=== PATIENT | female | born 1945 | race Two or more races ===

== ENCOUNTER → 2016-04-19 | Day surgery (SDC) | payer OTHER, MEDICAID ==
[2016-04-15 11:29] LABS: Basophils # (auto) 0.1 uL; Basophils % (auto) 1.9 % (0.0-2.0); Eosinophils # (auto) 0.1 uL; Eosinophils % (auto) 1.9 % (0.0-7.0); Hematocrit 42.2 % (36.0-46.0); Hemoglobin 13.9 g/dL (12.2-16.2); Lymphocytes # (auto) 2.1 uL; Lymphocytes % (auto) 30.6 % (10.0-50.0); Mean Corpuscular Hemoglobin 27.6 pg (28.0-32.0); Mean Corpuscular Volume 83.8 fL (80.0-100.0); Mean Platelet Volume 9.3 fL (7.4-10.4); Monocytes # (auto) 0.6 uL; Monocytes % (auto) 9.2 % (0.0-12.0); Neutrophils # (auto) 3.8 uL; Neutrophils % (auto) 56.4 % (37.0-80.0); Platelet Count (auto) 262 10^3/uL (140-450); Red Cell Distribution Width 14.5 % (11.6-16.0); SUSPECT VIEW TRANSMISSION; White Blood Cell 6.8 10^3/uL (4.4-10.8)
[2016-04-15 11:49] LABS: INR 1.06 (0.9-1.15); Partial Thromboplastin Time 26.8 sec (22.64-33.71); Prothrombin Time 10.9 sec (9.37-12.3)
[~2016-04-19] VITALS: Ht 149.9 cm; Wt 73.0 kg
[~2016-04-19] MED LIST: ESOM40CA39 PO; LIDOCAINE VISCOUS 2% 15ML UD ONE; SODIUM CHLORIDE LOCK 10 ML ONE; TELM80TA PO; diphenhdrAMINE HCL 50 MG/1 ML VL ONE
[2016-04-19] MEDS: MIDAZOLAM HCL 5 MG/ML-1ML VIAL ONE ×2 (11:00→11:03)
[2016-04-19] MEDS: fentaNYL CITRATE 100 MCG/2 ML VL ONE ×2 (11:00→11:03)
[2016-04-19 11:50] VITALS: BP 124/71
== END | disposition home or self-care (01) ==
LOC: GI 09:02
PROVIDERS: ATTEND Internal Medicine Gastroenterology
DX: K29.50 Unspecified chronic gastritis without bleeding (principal); K29.80 Duodenitis without bleeding; K20.9 Esophagitis, unspecified; J40 Bronchitis, not specified as acute or chronic; E66.9 Obesity, unspecified; Z90.710 Acquired absence of both cervix and uterus; F32.9 Major depressive disorder, single episode, unspecified
CPT/HCPCS: 36415; 43239; 85025; 85049; 85610; 85730; J1200; J2250; J3010; J7030

== ENCOUNTER → 2016-06-28 | Outpatient (CLI) | payer OTHER, MEDICAID ==
[~2016-06-28] MED LIST changes: -LIDOCAINE VISCOUS 2% 15ML UD ONE; -SODIUM CHLORIDE LOCK 10 ML ONE; -diphenhdrAMINE HCL 50 MG/1 ML VL ONE
== END ==
LOC: XY 11:50
DX: R22.1 Localized swelling, mass and lump, neck (principal); R55 Syncope and collapse; R09.89 Other specified symptoms and signs involving the circulatory and respiratory systems
CPT/HCPCS: 93886

== ENCOUNTER → 2016-07-13 | Outpatient (CLI) | payer OTHER, MEDICAID ==
[2016-07-13 07:46] LABS: Urine RBC None Seen /hpf (0 - 4)
[2016-07-13 07:56] LABS: Basophils # (auto) 0.1 uL; Basophils % (auto) 0.8 % (0.0-2.0); Eosinophils # (auto) 0.2 uL; Eosinophils % (auto) 2.6 % (0.0-7.0); Hematocrit 43.9 % (36.0-46.0); Hemoglobin 14.6 g/dL (12.2-16.2); Lymphocytes # (auto) 2.4 uL; Lymphocytes % (auto) 34.9 % (10.0-50.0); Mean Corpuscular Hemoglobin 27.7 pg (28.0-32.0); Mean Corpuscular Hgb Conc. 33.3 g/dL (32.0-36.0); Mean Corpuscular Volume 83.2 fL (80.0-100.0); Mean Platelet Volume 9.1 fL (7.4-10.4); Monocytes # (auto) 0.6 uL; Monocytes % (auto) 8.7 % (0.0-12.0); Neutrophils # (auto) 3.6 uL; Platelet Count (auto) 304 10^3/uL (140-450); Red Cell Distribution Width 14.6 % (11.6-16.0); White Blood Cell 6.9 10^3/uL (4.4-10.8)
[2016-07-13 07:58] LABS: Urine Bilirubin Negative (Negative); Urine Blood Negative /uL (Negative); Urine Color Yellow (Yellow); Urine Glucose Normal (Normal); Urine Ketone Negative (Negative); Urine Nitrite Negative (Negative); Urine Squamous Epithelial Cell FEW /hpf (<5); Urine Urobilinogen Normal (Negative)
[2016-07-13 08:25] LABS: BUN/Creatinine Ratio 26.9; Bilirubin, Total 0.5 mg/dL (0.2-1.0); Potassium 3.9 mmol/L (3.5-5.1); Total Protein 8.1 g/dL (6.4-8.2)
== END | disposition home or self-care (01) ==
LOC: LAB 07:20
DX: Z12.11 Encounter for screening for malignant neoplasm of colon (principal)
CPT/HCPCS: 36415; 80053; 80061; 81001; 85025

== ENCOUNTER → 2016-11-05 10:24 | Emergency (ER) | payer OTHER, MEDICAID ==
[~2016-11-05] VITALS: Ht 152.4 cm; Wt 72.6 kg
[~2016-11-05 10:24] MED LIST changes: +ACETAMINOPHEN 325 MG TAB PO ONE; +HYDROmorphone HCL 2 MG/ML VL IV ONE; +ONDANSETRON HCL 4 MG/2 ML VIAL IV ONE; +SODIUM CHLORIDE 0.9% 500 ML IVB ONE
[2016-11-05 11:02] LABS: Basophils # (auto) 0.1 uL; Basophils % (auto) 0.8 % (0.0-2.0); CONDITION Y; Eosinophils # (auto) 0.1 uL; Eosinophils % (auto) 1.2 % (0.0-7.0); Hematocrit 42.6 % (36.0-46.0); Hemoglobin 14.4 g/dL (12.2-16.2); Lymphocytes # (auto) 1.6 uL; Lymphocytes % (auto) 16.6 % (10.0-50.0); Mean Corpuscular Hgb Conc. 33.9 g/dL (32.0-36.0); Mean Corpuscular Volume 85.5 fL (80.0-100.0); Mean Platelet Volume 8.8 fL (7.4-10.4); Monocytes # (auto) 0.5 uL; Monocytes % (auto) 5.2 % (0.0-12.0); Neutrophils # (auto) 7.3 uL; Neutrophils % (auto) 76.2 % (37.0-80.0); Platelet Count (auto) 295 10^3/uL (140-450); Red Cell Distribution Width 14.9 % (11.6-16.0); White Blood Cell 9.6 10^3/uL (4.4-10.8)
[2016-11-05 11:12] LABS: Urine Bilirubin Negative (Negative); Urine Blood Negative /uL (Negative); Urine Color Yellow (Yellow); Urine Glucose Normal (Normal); Urine Ketone Negative (Negative); Urine Mucus FEW (None Seen); Urine Nitrite Negative (Negative); Urine RBC <1 /hpf (0 - 4); Urine Squamous Epithelial Cell FEW /hpf (<5); Urine Urobilinogen Normal (Negative)
[2016-11-05 11:21] LABS: BUN/Creatinine Ratio 16.7; Calcium 8.9 mg/dL (8.5-10.1); Potassium 3.7 mmol/L (3.5-5.1)
[2016-11-05 15:07] VITALS: BP 130/88
== END | disposition home or self-care (01) ==
LOC: ER 10:24
DX: R10.32 Left lower quadrant pain (principal); R11.0 Nausea; K21.9 Gastro-esophageal reflux disease without esophagitis; E78.5 Hyperlipidemia, unspecified; I10 Essential (primary) hypertension; Z90.49 Acquired absence of other specified parts of digestive tract; Z90.710 Acquired absence of both cervix and uterus; Z79.899 Other long term (current) drug therapy; Z88.1 Allergy status to other antibiotic agents
CPT/HCPCS: 36415; 74176; 80048; 81001; 85025; 94761; 96361; 96374; 96375; 99285; J1170; J2405

== ENCOUNTER 2016-12-29 06:15 | Day surgery (SDC) | payer OTHER, MEDICAID ==
[2016-12-24 11:24] LABS: Basophils # (auto) 0.1 uL; Eosinophils # (auto) 0.2 uL; Eosinophils % (auto) 1.9 % (0.0-7.0); Hematocrit 41.5 % (36.0-46.0); Hemoglobin 14.1 g/dL (12.2-16.2); Lymphocytes # (auto) 2.2 uL; Lymphocytes % (auto) 24.8 % (10.0-50.0); Mean Corpuscular Hemoglobin 28.9 pg (28.0-32.0); Mean Platelet Volume 8.2 fL (6.9-10.8); Monocytes # (auto) 0.7 uL; Monocytes % (auto) 8.3 % (0.0-12.0); Neutrophils # (auto) 5.6 uL; Nucleated Red Blood Cells % 0.1 %; Platelet Count (auto) 291 10^3/uL (140-450); Red Cell Distribution Width 14.5 % (11.8-14.3); White Blood Cell 8.8 10^3/uL (4.4-10.8)
[2016-12-24 11:42] LABS: INR 0.97 (0.9-1.15); Prothrombin Time 10.6 sec (9.37-12.3)
[2016-12-24 11:52] LABS: BUN/Creatinine Ratio 34.7; Bilirubin, Total 0.4 mg/dL (0.2-1.0); Calcium 8.9 mg/dL (8.5-10.1); Potassium 3.8 mmol/L (3.5-5.1); Total Protein 7.9 g/dL (6.4-8.2)
[2016-12-24 12:18] LABS: Urine Bilirubin Negative (Negative); Urine Blood Negative /uL (Negative); Urine Glucose Normal (Normal); Urine Ketone Negative (Negative); Urine Mucus FEW (None Seen); Urine Nitrite Negative (Negative); Urine RBC <1 /hpf (0 - 4); Urine Squamous Epithelial Cell FEW /hpf (<5); Urine Urobilinogen Normal (Negative); Urine pH 5.5 (5.0-8.0)
[2016-12-24 12:19] LABS: Urine Color Straw (Yellow)
[~2016-12-29] VITALS: Ht 152.4 cm; Wt 73.0 kg
[~2016-12-29 06:15] MED LIST changes: -ACETAMINOPHEN 325 MG TAB PO ONE; +AMLO10TA2 PO; +ATOR10TA52 PO; -HYDROmorphone HCL 2 MG/ML VL IV ONE; -ONDANSETRON HCL 4 MG/2 ML VIAL IV ONE; -SODIUM CHLORIDE 0.9% 500 ML IVB ONE
[2016-12-29] MEDS ORDERED: ceFAZolin 1GM/50ML D5W 50 ML IV ONE (07:05)
[2016-12-29] MEDS ORDERED: METOCLOPRAMIDE HCL 5MG/ml INJ 2ml VIAL IV ONE (07:30)
[2016-12-29] MEDS ORDERED: KETOROLAC TROMETH 30 MG/ML 1ML VIAL IV ONE (07:30)
[2016-12-29] MEDS ORDERED: NEOMYCIN-BACITRACIN-POLYM 15GM TOP OINT TOP ONE (07:31)
[2016-12-29] MEDS ORDERED: BUPIVACAINE 0.75% INJ 10ML MPV SDV IJ ONE ×2 (07:31→09:10)
[2016-12-29] MEDS ORDERED: ceFAZolin 1GM VL ONE (07:41)
[2016-12-29] MEDS ORDERED: ONDANSETRON HCL 4 MG/2 ML VIAL ONE (08:48)
[2016-12-29] MEDS ORDERED: fentaNYL CITRATE 100 MCG/2 ML VL ONE (08:48)
[2016-12-29] MEDS ORDERED: MIDAZOLAM HCL 1MG/1ML-2 ML VIAL ONE (08:48)
[2016-12-29] MEDS ORDERED: SODIUM CHLORIDE LOCK 20 ML ONE (08:48)
[2016-12-29] MEDS ORDERED: PROPOFOL 10 MG/ML 20 ML IV ONE ×2 (08:48→10:18)
[2016-12-29] MEDS: HYDROmorphone HCL 2 MG/ML VL IV PRN ×2 (10:46→10:56)
[2016-12-29 11:20] VITALS: BP 155/74
== END 2016-12-29 11:20 | disposition home or self-care (01) ==
LOC: SUR 06:15
PROVIDERS: ATTEND Podiatrist Foot & Ankle Surgery
DX: M21.611 Bunion of right foot (principal); M20.11 Hallux valgus (acquired), right foot; M89.9 Disorder of bone, unspecified; M62.471 Contracture of muscle, right ankle and foot; J40 Bronchitis, not specified as acute or chronic; E66.9 Obesity, unspecified; Z90.710 Acquired absence of both cervix and uterus; F41.9 Anxiety disorder, unspecified
CPT/HCPCS: 28104; 28296; 36415; 73620; 76000; 80053; 81001; 85025; 85610; 85730; 88304; 88311; C1713; J0690; J1170; J1885; J2250; J2405; J2704; J3010; J3490; L3260

== ENCOUNTER 2017-02-23 16:20 | Emergency (ER) | payer OTHER, MEDICAID ==
[~2017-02-23] VITALS: Ht 152.4 cm; Wt 72.6 kg
[2017-02-23] MEDS ORDERED: cloNIDine HCL 0.1 MG TAB ONE (16:23)
[2017-02-23 16:29] VITALS: BP 255/125
[2017-02-23] MEDS ORDERED: cloNIDine HCL 0.1 MG TAB PO ONE (16:30)
[2017-02-23 17:19] LABS: Basophils # (auto) 0.1 uL; Basophils % (auto) 1.4 % (0.0-2.0); Eosinophils # (auto) 0.1 uL; Eosinophils % (auto) 1.2 % (0.0-7.0); Hematocrit 44.1 % (36.0-46.0); Hemoglobin 14.8 g/dL (12.2-16.2); Lymphocytes # (auto) 2.2 uL; Lymphocytes % (auto) 27.1 % (10.0-50.0); Mean Corpuscular Hemoglobin 28.5 pg (28.0-32.0); Mean Corpuscular Hgb Conc. 33.5 g/dL (32.0-36.0); Mean Corpuscular Volume 84.9 fL (80.0-100.0); Mean Platelet Volume 8.5 fL (6.9-10.8); Monocytes # (auto) 0.7 uL; Monocytes % (auto) 9.1 % (0.0-12.0); Neutrophils % (auto) 61.2 % (37.0-80.0); Nucleated Red Blood Cells % 0.2 %; Platelet Count (auto) 311 10^3/uL (140-450); Red Cell Distribution Width 14.6 % (11.8-14.3); White Blood Cell 8.1 10^3/uL (4.4-10.8)
[2017-02-23 17:42] LABS: Albumin 4.2 g/dL (3.4-5.0); Alkaline Phosphatase 101 U/L (45-117); Anion Gap 12 (5-15); Aspartate Aminotransferase 36 U/L (15-37); Bilirubin, Total 0.4 mg/dL (0.2-1.0); Blood Urea Nitrogen 13 mg/dL (7-18); Carbon Dioxide 22 mmol/L (21-32); Chloride 107 mmol/L (98-107); GFR African American 157 mL/min; GFR Non-African American 130 mL/min; Glucose 102 mg/dL (74-106); Magnesium 2.1 mg/dL (1.6-2.6); Potassium 3.7 mmol/L (3.5-5.1); Sodium 141 mmol/L (136-145); Total Protein 8.3 g/dL (6.4-8.2)
== END 2017-02-23 22:02 | disposition left against medical advice (07) ==
LOC: ER 16:21
DX: R07.89 Other chest pain (principal); R51 Headache; Z53.21 Procedure and treatment not carried out due to patient leaving prior to being seen by health care provider
CPT/HCPCS: 36415; 70450; 71020; 80053; 83735; 84484; 85025; 93005

== ENCOUNTER → 2017-03-07 | Outpatient (CLI) | payer OTHER, MEDICAID | END | disposition home or self-care (01) | LOC: LAB 10:17 | PROVIDERS: ATTEND Family Medicine | DX: R53.83 Other fatigue (principal) | CPT/HCPCS: 36415; 84439; 84443; 84481 ==

== ENCOUNTER → 2017-04-13 | Outpatient (CLI) | payer OTHER, MEDICAID ==
[2017-04-13 11:29] LABS: Basophils # (auto) 0.2 uL; Basophils % (auto) 3.1 % (0.0-2.0); Eosinophils # (auto) 0.2 uL; Eosinophils % (auto) 3.4 % (0.0-7.0); Hematocrit 43.1 % (36.0-46.0); Hemoglobin 14.3 g/dL (12.2-16.2); Lymphocytes # (auto) 2.4 uL; Lymphocytes % (auto) 40.9 % (10.0-50.0); Mean Corpuscular Hemoglobin 27.8 pg (28.0-32.0); Mean Corpuscular Hgb Conc. 33.2 g/dL (32.0-36.0); Mean Corpuscular Volume 83.6 fL (80.0-100.0); Monocytes # (auto) 0.6 uL; Monocytes % (auto) 9.7 % (0.0-12.0); Neutrophils # (auto) 2.5 uL; Neutrophils % (auto) 42.9 % (37.0-80.0); Nucleated Red Blood Cells % 0.1 %; Platelet Count (auto) 303 10^3/uL (140-450); Red Blood Cells 5.15 10^6/uL (4.0-5.20); Red Cell Distribution Width 15.1 % (11.8-14.3); White Blood Cell 5.9 10^3/uL (4.4-10.8)
[2017-04-13 11:46] LABS: Albumin 3.9 g/dL (3.4-5.0); Bilirubin, Total 0.4 mg/dL (0.2-1.0); Total Protein 7.8 g/dL (6.4-8.2)
[2017-04-13 13:48] LABS: Urine Bacteria FEW /hpf (None Seen); Urine Blood Negative /uL (Negative); Urine Mucus FEW (None Seen); Urine Specific Gravity 1.013 (1.001-1.035); Urine WBC 9 /hpf (0 - 5)
== END | disposition home or self-care (01) ==
LOC: LAB 10:43
PROVIDERS: ATTEND Family Medicine
DX: E78.5 Hyperlipidemia, unspecified (principal)
CPT/HCPCS: 36415; 80053; 80061; 81001; 85025

== ENCOUNTER 2019-10-07 13:07 | Inpatient (IN) | payer OTHER, MEDICAID ==
[~2019-10-07] VITALS: Ht 160 cm; Wt 71.2 kg
[~2019-10-07 13:07] MED LIST changes: +AMLO10TA13 PO; -AMLO10TA2 PO
[2019-10-07] MEDS ORDERED: SODIUM CHLORIDE 0.9% 1,000 ML IV ONE ×2 (16:49→22:15)
[2019-10-07] MEDS ORDERED: ONDANSETRON HCL 4 MG/2 ML VIAL IV ONE (17:00)
[2019-10-07] MEDS ORDERED: PANTOPRAZOLE 40 MG/10 ML VIAL INJ IV ONE (17:00)
[2019-10-07 18:58] LABS: Basophils # (auto) 0 10 ^3/uL (0-0.2); Basophils % (auto) 0.2 % (0.0-2.0); Eosinophils # (auto) 0 10 ^3/uL (0-0.8); Hematocrit 43.3 % (36.0-46.0); Hemoglobin 14.5 g/dL (12.2-16.2); Lymphocytes # (auto) 1.5 10 ^3/uL (0.4-5.4); Lymphocytes % (auto) 15.5 % (10.0-50.0); Mean Corpuscular Hemoglobin 27.9 pg (28.0-32.0); Mean Corpuscular Hgb Conc. 33.4 g/dL (32.0-36.0); Mean Corpuscular Volume 83.5 fL (80.0-100.0); Monocytes % (auto) 9.9 % (0.0-12.0); Neutrophils # (auto) 7.4 10 ^3/uL (1.6-8.6); Neutrophils % (auto) 74.4 % (37.0-80.0); Nucleated Red Blood Cells % 0.2 %; Platelet Count (auto) 252 10^3/uL (140-450); Red Blood Cells 5.19 10^6/uL (4.0-5.20); Red Cell Distribution Width 14.7 % (11.8-14.3)
[2019-10-07 19:15] LABS: Albumin 3.3 g/dL (3.4-5.0); Calcium 8.7 mg/dL (8.5-10.1); Magnesium 2.4 mg/dL (1.6-2.6); Potassium 3.3 mmol/L (3.5-5.1)
[2019-10-07 19:18] LABS: BUN/Creatinine Ratio 31.3; Bilirubin, Total 0.6 mg/dL (0.2-1.0); Total Protein 7.9 g/dL (6.4-8.2)
[2019-10-07] MEDS ORDERED: IOHEXOL 300 MG/ML 100ML BOTTLE IJ ONE (20:49)
[2019-10-07] MEDS ORDERED: AZITHROMYCIN 500MG/ 250ML 250 ML IV ONE (22:00)
[2019-10-07] MEDS ORDERED: cefTRIAXone 1GM/50ML D5W 50 ML IV ONE (22:00)
[2019-10-07] MEDS ORDERED: ACETAMINOPHEN 325 MG TAB PO ONE (23:45)
[2019-10-08] MEDS ORDERED: SODIUM CHLORIDE 0.9% 1,000 ML IV SCH (04:43)
[2019-10-08] MEDS ORDERED: MORPHINE SULF INJ 2 MG/ML SYRINGE 1ML IV PRN (04:45)
[2019-10-08] MEDS ORDERED: DOCUSATE SOD 100 MG CAP PO PRN (04:45)
[2019-10-08] MEDS ORDERED: HYDROcodone-ACET 5/325MG TAB PO PRN (04:45)
[2019-10-08] MEDS ORDERED: ALUM & MAG HYDROX-SIMETH LIQ(MAALOX) 30 ML PO PRN (04:45)
[2019-10-08] MEDS ORDERED: ACETAMINOPHEN 500 MG TAB PO PRN (04:45)
[2019-10-08] MEDS ORDERED: ALBUTEROL SULF HFA 90MCG INH 200DOSE IN SCH (06:00)
[2019-10-08] MEDS: ACETAMINOPHEN 325 MG TAB PO PRN ×2 (07:49→11:10)
[2019-10-08] MEDS ORDERED: PANTOPRAZOLE 40 MG/10 ML VIAL INJ IV SCH (10:00)
[2019-10-08] MEDS: ASCORBIC ACID 1,000 MG TAB PO SCH (10:35)
[2019-10-08] MEDS: ENOXAPARIN SOD 40 MG/0.4 ML SYRINGE SC SCH (10:35)
[2019-10-08] MEDS: CHOLECALCIFEROL (VITD3) 1,000IU=25mCg TAB PO SCH (10:35)
[2019-10-08] MEDS: DOXYCYCLINE 100 MG TAB/CAP PO SCH ×2 (10:35→22:41)
[2019-10-08] MEDS: ZINC SULFATE 220mg CAP or TAB PO SCH (10:35)
[2019-10-08 11:24] LABS: Basophils # (auto) 0 10 ^3/uL (0-0.2); Basophils % (auto) 0.3 % (0.0-2.0); Eosinophils # (auto) 0 10 ^3/uL (0-0.8); Eosinophils % (auto) 0.1 % (0.0-7.0); Hematocrit 38.8 % (36.0-46.0); Hemoglobin 12.9 g/dL (12.2-16.2); Lymphocytes # (auto) 1.3 10 ^3/uL (0.4-5.4); Lymphocytes % (auto) 13.8 % (10.0-50.0); Mean Corpuscular Hgb Conc. 33.3 g/dL (32.0-36.0); Mean Corpuscular Volume 83.9 fL (80.0-100.0); Monocytes # (auto) 0.6 10 ^3/uL (0-1.3); Monocytes % (auto) 6.2 % (0.0-12.0); Neutrophils # (auto) 7.5 10 ^3/uL (1.6-8.6); Neutrophils % (auto) 79.6 % (37.0-80.0); Platelet Count (auto) 241 10^3/uL (140-450); Red Blood Cells 4.63 10^6/uL (4.0-5.20); Red Cell Distribution Width 14.7 % (11.8-14.3); White Blood Cell 9.4 10^3/uL (4.4-10.8)
[2019-10-08] MEDS ORDERED: POTASSIUM CHL 20 Meq TABLET PO ONE ×2 (11:30→12:30)
[2019-10-08 11:37] LABS: BUN/Creatinine Ratio 30.4; Calcium 8.5 mg/dL (8.5-10.1); Magnesium 2.2 mg/dL (1.6-2.6)
[2019-10-08 20:32] VITALS: BP 101/53
--- NOTE | 2019-10-08 20:32 | NUR ---
MS admit from ER to Covid-19 Unit NATHANGONZALO MARIO admitted to tele/MS. Patient oriented to ALTHEA VILLELA, primary RN, unit, room, bed, and unit policies regarding patient care and visiting hours. Patient is alert and oriented x4. Patient denies pain or shortness of breath at this time. Patient is on 2L NC, SPO2: 94% at this time. No sign/symptoms of distress noted or verbalized at this time. Instructed on plan of care and encouraged patient to call for assistance as needed, patient verbalized understanding. Bed is locked in lowest position, side rails x 2 are up, call light is within reach, and bed alarm is on.
[2019-10-08 22:00] VITALS: BP 101/53
[2019-10-08] MEDS: amLODIPine BESYLATE 5 MG TAB PO SCH (22:00)
[2019-10-08] MEDS: PANTOPRAZOLE 40 MG TAB PO SCH (22:40)
[2019-10-08] MEDS ORDERED: OMEP-434 PO (23:55)
[2019-10-08] MEDS ORDERED: LOSA-39 PO (23:55)
--- NOTE | 2019-10-09 00:40 | NUR ---
Urine Sample and MRSA Swab Collected and Sent to Lab Urine sample and MRSA swab collected and sent to lab via bullet.
[2019-10-09 01:06] LABS: Urine Amorphous Crystal FEW /hpf (None Seen); Urine Bacteria FEW /hpf (None Seen); Urine Blood Negative /uL (Negative); Urine Specific Gravity 1.003 (1.001-1.035); Urine WBC 4 /hpf (0 - 5)
[2019-10-09 05:00] VITALS: BP 159/82
[2019-10-09 06:54] LABS: Basophils # (auto) 0 10 ^3/uL (0-0.2); Basophils % (auto) 0.3 % (0.0-2.0); Eosinophils # (auto) 0 10 ^3/uL (0-0.8); Eosinophils % (auto) 0.4 % (0.0-7.0); Hematocrit 38.7 % (36.0-46.0); Lymphocytes % (auto) 12.8 % (10.0-50.0); Mean Corpuscular Hemoglobin 28.2 pg (28.0-32.0); Mean Corpuscular Hgb Conc. 33.7 g/dL (32.0-36.0); Mean Corpuscular Volume 83.6 fL (80.0-100.0); Monocytes # (auto) 0.7 10 ^3/uL (0-1.3); Monocytes % (auto) 8.8 % (0.0-12.0); Neutrophils # (auto) 6.2 10 ^3/uL (1.6-8.6); Neutrophils % (auto) 77.7 % (37.0-80.0); Nucleated Red Blood Cells % 0.2 %; Platelet Count (auto) 247 10^3/uL (140-450); Red Blood Cells 4.62 10^6/uL (4.0-5.20); Red Cell Distribution Width 14.8 % (11.8-14.3)
[2019-10-09 07:15] LABS: Calcium 8.6 mg/dL (8.5-10.1); Potassium 3.9 mmol/L (3.5-5.1)
[2019-10-09 07:18] LABS: Albumin 2.4 g/dL (3.4-5.0); BUN/Creatinine Ratio 27.8
[2019-10-09 07:21] LABS: Bilirubin, Total 0.4 mg/dL (0.2-1.0); Total Protein 6.5 g/dL (6.4-8.2)
--- NOTE | 2019-10-09 07:35 | NUR ---
Opening Shift Note Assumed care of patient, awake and alert. No S/S of distress/SOB or pain noted at this time, currently on 2L via NC. Instructed on POC and to call for assist PRN, call light within reach, bed alarm on, pt states she uses [facility] at home, instructed to use call light if she needs to ambulate to bathroom, pt verbalized understanding, will continue to monitor for changes Q1hr and PRN.
[2019-10-09 08:00] VITALS: BP 154/85
[2019-10-09] MEDS: ENOXAPARIN SOD 40 MG/0.4 ML SYRINGE SC SCH ×2 (08:53→22:09)
[2019-10-09] MEDS: PANTOPRAZOLE 40 MG TAB PO SCH ×2 (08:55→22:08)
[2019-10-09] MEDS: ZINC SULFATE 220mg CAP or TAB PO SCH (08:55)
[2019-10-09] MEDS: ASCORBIC ACID 1,000 MG TAB PO SCH (08:56)
[2019-10-09] MEDS: CHOLECALCIFEROL (VITD3) 1,000IU=25mCg TAB PO SCH (08:57)
[2019-10-09] MEDS: DOXYCYCLINE 100 MG TAB/CAP PO SCH ×2 (08:57→22:08)
[2019-10-09 09:00] VITALS: BP 154/85
[2019-10-09] MEDS: ACETAMINOPHEN 325 MG TAB PO PRN ×2 (11:03→18:29)
--- NOTE | 2019-10-09 11:40 | NUR ---
AMBULATION PT ASSISTED TO BATHROOM, GAIT UNSTEADY, ASSISTED BACK TO BED, BED ALARM ON AND CALL LIGHT WITHIN REACH, CONT CARE
[2019-10-09 13:00] VITALS: BP 123/72
[2019-10-09] MEDS ORDERED: FUROSEMIDE 40 MG/4 ML VIAL IV ONE (13:30)
[2019-10-09] MEDS ORDERED: POTASSIUM CHL 20 Meq TABLET PO ONE (13:30)
[2019-10-09] MEDS ORDERED: cefTRIAXone 1GM/50ML D5W 50 ML IV ONE (13:45)
--- NOTE | 2019-10-09 15:30 | NUR ---
INCENTIVE SPIROMETER PT INSTRUCTED HOW TO USE AND INSTRUCTED TO USE Q1HR WA, PT ABLE TO RETURN DEMONSTRATION AND RAISE MARKER TO 500, C/O SOB AND NON PRODUCTIVE COUGH, CONT TO BE ON O2, INSTRUCTED PT TAKE A BREAK AND TRY AGAIN LATER, PT VERBALIZED UNDERSTANDING,, CONT CARE
[2019-10-09 17:00] VITALS: BP 110/72
--- NOTE | 2019-10-09 19:02 | NUR ---
PAIN PT C/O "LUNG PAIN AND HEAD ACHE", OFFERED TO MEDICATE WITH NORCO, PT REFUSED AND SATES "OH I GET REALLY SICK WITH NORCO", OFFERED PT MORPHINE AND PT REFUSED AND STATES " OH NO I DON'T LIKE TO TAKE MORPHINE", PT AGREED TO TAKE TYLENOL 650MG PO, CONT CARE
--- NOTE | 2019-10-09 19:40 | NUR ---
Opening Shift Note Assumed care of patient, awake and alert x4. Patient is on 2L/min NC, SPO2: 94% at this time. Patient denies pain or shortness of breath at this time. No sign/symptoms of distress noted or verbalized at this time. Instructed on plan of care and encouraged to call for assistance as needed, patient verbalized understanding. Bed is locked in lowest position, side rails x 2 are up, call light is within reach, and bed alarm is on.
[2019-10-09] MEDS: amLODIPine BESYLATE 5 MG TAB PO SCH (22:09)
[2019-10-09 22:18] VITALS: BP 120/81
[2019-10-10 05:00] VITALS: BP 117/68
--- NOTE | 2019-10-10 07:30 | NUR ---
Opening Shift Note Assumed care of patient, awake and alert. No S/S of distress/SOB or pain. Instructed on POC and to call for assist PRN, will continue to monitor for changes Q1hr and PRN. Fall precautions in place per safety protocol.
[2019-10-10] MEDS: ACETAMINOPHEN 325 MG TAB PO PRN ×2 (09:01→19:40)
[2019-10-10 09:14] VITALS: BP 116/59
[2019-10-10] MEDS: cefTRIAXone 1GM/50ML D5W 50 ML IV SCH (09:20)
[2019-10-10] MEDS: FUROSEMIDE 40 MG/4 ML VIAL IV SCH (09:21)
[2019-10-10] MEDS: ZINC SULFATE 220mg CAP or TAB PO SCH (09:21)
[2019-10-10] MEDS: ASCORBIC ACID 1,000 MG TAB PO SCH (09:22)
[2019-10-10] MEDS: PANTOPRAZOLE 40 MG TAB PO SCH ×2 (09:22→22:32)
[2019-10-10] MEDS: CHOLECALCIFEROL (VITD3) 1,000IU=25mCg TAB PO SCH (09:22)
[2019-10-10] MEDS: POTASSIUM CHL 20 Meq TABLET PO SCH (09:22)
[2019-10-10] MEDS: DOXYCYCLINE 100 MG TAB/CAP PO SCH ×2 (09:22→22:32)
[2019-10-10] MEDS: ENOXAPARIN SOD 40 MG/0.4 ML SYRINGE SC SCH ×2 (09:23→22:33)
[2019-10-10] MEDS: ONDANSETRON HCL 4 MG/2 ML VIAL IV PRN (09:46)
[2019-10-10] MEDS: Ensure HIGH Protein Chocolate 8oz Bottle PO SCH ×2 (12:00→18:00)
[2019-10-10 12:30] VITALS: BP 102/64
[2019-10-10 17:13] VITALS: BP 97/60
--- NOTE | 2019-10-10 19:30 | NUR ---
OPENING SHIFT NOTE Assumed care of patient who is A&O x4. Predominately Stateless speaking. Currently on 2L NC with noted dry cough. Denies SOB. Reports 3/10 headache at this time. Pain management options discussed. No N/V/D at this time, according to patient. Patient is weak, but capable of transferring to [facility] independently. No IV access present. Will attempt to obtain venous access. Bed is in low locked position with side rails up x2. call light is within reach and patient encouraged to call for assistance when needed. Will continue to monitor for changes PRN.
[2019-10-10 20:00] VITALS: BP 122/72
[2019-10-10 22:00] VITALS: BP 122/72
[2019-10-10] MEDS: amLODIPine BESYLATE 5 MG TAB PO SCH (22:32)
--- NOTE | 2019-10-10 22:34 | NUR ---
IV ACCESS ATTEMPT Patient currently has no IV access. Patient refused to allow this RN to attempt obtaining IV access at this time. States' "not now. Wait until tomorrow." No IV medications are due over night. Will attempt to obtain venous access again in the morning.
[2019-10-11 05:00] VITALS: BP 90/46
--- NOTE | 2019-10-11 06:45 | NUR ---
IV insertion IV access obtained, via clean sterile technique by inserting 22 gauge catheter at left forearm after 2 attempts. IV secured properly. No trauma to site. Patient tolerated well.
[2019-10-11] MEDS: Ensure HIGH Protein Chocolate 8oz Bottle PO SCH ×2 (08:00→12:00)
[2019-10-11 08:29] VITALS: BP 101/60
[2019-10-11] MEDS: cefTRIAXone 1GM/50ML D5W 50 ML IV SCH (09:40)
[2019-10-11] MEDS: FUROSEMIDE 40 MG/4 ML VIAL IV SCH (09:41)
[2019-10-11] MEDS: POTASSIUM CHL 20 Meq TABLET PO SCH (09:41)
[2019-10-11] MEDS: PANTOPRAZOLE 40 MG TAB PO SCH (09:41)
[2019-10-11] MEDS: DOXYCYCLINE 100 MG TAB/CAP PO SCH (09:41)
[2019-10-11] MEDS: ZINC SULFATE 220mg CAP or TAB PO SCH (09:41)
[2019-10-11] MEDS: CHOLECALCIFEROL (VITD3) 1,000IU=25mCg TAB PO SCH (09:42)
[2019-10-11] MEDS: ENOXAPARIN SOD 40 MG/0.4 ML SYRINGE SC SCH (09:42)
[2019-10-11] MEDS: ONDANSETRON HCL 4 MG/2 ML VIAL IV PRN (09:42)
[2019-10-11] MEDS: ASCORBIC ACID 1,000 MG TAB PO SCH (09:42)
[2019-10-11] MEDS: ACETAMINOPHEN 325 MG TAB PO PRN ×2 (09:48→16:09)
[2019-10-11] MEDS ORDERED: POTA-220 PO (12:13)
[2019-10-11] MEDS ORDERED: FURO20TA3 PO (12:13)
[2019-10-11] MEDS ORDERED: ASPI81CH43 PO (12:13)
[2019-10-11] MEDS ORDERED: AZIT500T66 PO (12:13)
[2019-10-11] MEDS ORDERED: CHOL1000 PO (12:13)
[2019-10-11] MEDS ORDERED: ASCO10003 PO (12:13)
[2019-10-11] MEDS ORDERED: DEXT1SYP9 PO (12:15)
[2019-10-11] MEDS ORDERED: AMOX500T86 PO (12:15)
[2019-10-11 12:23] VITALS: BP 100/62
--- NOTE | 2019-10-11 13:32 | NUR ---
SPOKE TO CHAIR AND COUCH MAKER. PER [facility] PATIENT CAN NOT GO BY [facility], [employer] WILL NOT ACCEPT COVID POSITIVE PATIENTS.
--- NOTE | 2019-10-11 13:32 | NUR ---
SPOKE TO BILLY UNDERCOAT SPRAYER, PER BILLY ONLY ONE COMPANY WILL ACCEPT PATIENT AND PATIENT WILL HAVE TO PAY OUT OF POCKET. PATIENT STATES SHE WILL TRY TO CALL SOMEONE.
--- NOTE | 2019-10-11 16:13 | NUR ---
Assessment Patient is a 74- year-old female who is alert and oriented. Prior to admission patient lived home with her son and function independently. Per patient she can care for her own ADLs. Per patient has a walker for home use. Per patient she will return to her prior living arrangements post discharge and [facility] transportation needs to be arranged upon d/c day. Patient PCP Dr. Sylvester. Advise patient there is a social service consult for home oxygen. Informed patient clinical information will be faxed to [facility]. Advised patient to follow up with her primary doctor. Informed patient she has the right to participate in all discharge planning. Patient verbalized understanding and agreed to discharge plan. Faxed clinical information to [facility] requesting to deliver portable oxygen to [facility]. Deangelo Koch with [facility] oxygen portable will be delivering to [facility] by 15:45 and concentrate oxygen to home. Faxed transportation form request to [facility] requesting for a 17:00 via gurney and oxygen. [facility] transport is aware that patient is COVID (+). Deangelo Taylor with [facility] transportation has been arranged with [facility] Ph:) unit via gurney and oxygen with a 17:15 moss picker time. EFE Fitch was Informed. Addendum: 10/11/19 at 1614 by SHA SALAZAR Amended: Links added.
[2019-10-11 16:52] VITALS: BP 106/72
[2019-10-11] MEDS ORDERED: METH4PAK PO (17:07)
--- NOTE | 2019-10-11 17:59 | NUR ---
Discharge instructions given as ordered. Encourage to follow up with PMD as instructed. INSTRUCTED TO FOLLOW UP WITH PCP FOR FOLLOW UP APPOINTMENT AND CT SCAN FOLLOW UP. INSTRUCTED ON OXYGEN USE AND DISCHARGED WITH OXYGEN DELIVERED. All questions and concerns addressed. Patient verbalized understanding. IV removed with catheter intact, pressure dressing applied. Telemetry unit returned to ICU. Patient taken to vehicle via wheelchair with all personal belongings, accompanied by staff, TRANSPORTED BY [facility] [employer]. No distress noted at time of departure.
== END 2019-10-11 18:00 | disposition home health service (06) | DRG 177 ==
LOC: ER 13:07 → EDBD 13:07 → EDUNIT# 13:07 → OVERFLOW 13:08 → EAST 10-08 20:32
PROVIDERS: ADMIT Hospitalist; ATTEND Internal Medicine
DX: U07.1 COVID-19 (principal); J12.89 Other viral pneumonia; J96.00 Acute respiratory failure, unspecified whether with hypoxia or hypercapnia; A08.39 Other viral enteritis; K29.00 Acute gastritis without bleeding; I10 Essential (primary) hypertension; E78.5 Hyperlipidemia, unspecified; F32.9 Major depressive disorder, single episode, unspecified; K42.9 Umbilical hernia without obstruction or gangrene; K21.9 Gastro-esophageal reflux disease without esophagitis; K76.9 Liver disease, unspecified; K76.0 Fatty (change of) liver, not elsewhere classified; M47.9 Spondylosis, unspecified; M43.16 Spondylolisthesis, lumbar region; Z88.8 Allergy status to other drugs, medicaments and biological substances; Z82.49 Family history of ischemic heart disease and other diseases of the circulatory system; Z82.5 Family history of asthma and other chronic lower respiratory diseases; Z83.3 Family history of diabetes mellitus; Z90.710 Acquired absence of both cervix and uterus
CPT/HCPCS: 36415; 71045; 74177; 80048; 80053; 81001; 82105; 82728; 83735; 85025; 87040; 87070; 87081; 87804; 87880; 96361; 96365; 96368; 96372; 96375; C9113; G0378; J0696; J2405

== ENCOUNTER 2019-11-23 10:41 | Emergency (ER) | payer OTHER, MEDICAID ==
[~2019-11-23] VITALS: Ht 149.9 cm; Wt 68.0 kg
[~2019-11-23 10:41] MED LIST changes: -AMLO10TA13 PO; +AMOX500T86 PO; +ASCO10003 PO; +ASPI81CH43 PO; -ATOR10TA52 PO; +AZIT500T66 PO; +CHOL1000 PO; +DEXT1SYP9 PO; -ESOM40CA39 PO; +FURO20TA3 PO; +METH4PAK PO; +OMEP-434 PO; +POTA-220 PO; -TELM80TA PO
[2019-11-23 11:16] VITALS: BP 163/87
[2019-11-23] MEDS ORDERED: ACETAMINOPHEN 325 MG TAB PO ONE (12:15)
== END 2019-11-23 12:33 | disposition home or self-care (01) ==
LOC: ER 10:41
DX: S83.92XA Sprain of unspecified site of left knee, initial encounter (principal); M17.12 Unilateral primary osteoarthritis, left knee; K21.9 Gastro-esophageal reflux disease without esophagitis; E78.5 Hyperlipidemia, unspecified; I10 Essential (primary) hypertension; Z88.1 Allergy status to other antibiotic agents; Z88.8 Allergy status to other drugs, medicaments and biological substances
CPT/HCPCS: 73562

== ENCOUNTER 2022-03-10 17:07 | Emergency (ER) | payer OTHER, MEDICAID ==
[~2022-03-10] VITALS: Ht 152.4 cm; Wt 67.7 kg
[~2022-03-10 17:07] MED LIST changes: -CHOL1000 PO; +CHOL1TAB30 PO
[2022-03-10] MEDS ORDERED: ESCI10TA PO ×2 (20:29→22:14)
[2022-03-10] MEDS ORDERED: HYDR-3682 PO ×2 (20:29→22:15)
[2022-03-10 22:09] VITALS: BP 180/90
== END 2022-03-10 22:25 | disposition home or self-care (01) ==
LOC: ER 17:07
DX: F32.9 Major depressive disorder, single episode, unspecified (principal); F41.9 Anxiety disorder, unspecified; K21.9 Gastro-esophageal reflux disease without esophagitis; E78.5 Hyperlipidemia, unspecified; I10 Essential (primary) hypertension; Z90.49 Acquired absence of other specified parts of digestive tract; Z90.710 Acquired absence of both cervix and uterus; Z90.89 Acquired absence of other organs; Z98.890 Other specified postprocedural states